=== PATIENT | female | born 1985 | race Caucasian/White ===

== ENCOUNTER 2019-07-05 12:42 | Emergency (ER) | payer SELFPAY ==
[~2019-07-05] VITALS: Ht 157 cm; Wt 101.9 kg
[~2019-07-05 12:42] MED LIST: FLUO20CA25; HYDR1TAB PO; LEVOTHYROXINE; TOPI50TA20
[2019-07-05 13:21] VITALS: BP 145/92
[2019-07-05 13:21] LABS: BASOPHILS % (AUTO) 0 % (0-10); EOSINOPHILS # (AUTO) 0.1 10^3/uL (0.0-0.3); EOSINOPHILS % (AUTO) 1 % (0-10); HEMATOCRIT 40 % (35-52); HEMOGLOBIN 13.5 G/DL (11.5-16.0); LYMPHOCYTES # (AUTO) 1.9 X 10^3 (1.0-4.0); LYMPHOCYTES % (AUTO) 23 % (12-44); MEAN CORPUSCULAR HEMOGLOBIN 29 PG (25-34); MEAN CORPUSCULAR HGB CONC 34 G/DL (32-36); MEAN CORPUSCULAR VOLUME 87 FL (80-99); MEAN PLATELET VOLUME 10.1 FL (7.4-10.4); MONOCYTES # (AUTO) 0.5 X 10^3 (0.0-1.0); MONOCYTES % (AUTO) 6 % (0-12); NEUTROPHILS # (AUTO) 5.7 X 10^3 (1.8-7.8); NEUTROPHILS % (AUTO) 70 % (42-75); PLATELET COUNT 315 10^3/uL (130-400); RED CELL DISTRIBUTION WIDTH 13.3 % (10.0-14.5); WHITE BLOOD COUNT 8.2 10^3/uL (4.3-11.0)
[2019-07-05 13:46] LABS: ALANINE AMINOTRANSFERASE 24 U/L (0-55); ALBUMIN 4.8 GM/DL (3.2-4.5); ALKALINE PHOSPHATASE 74 U/L (40-136); BILIRUBIN,TOTAL 0.6 MG/DL (0.1-1.0); BUN/CREATININE RATIO 11; CALCIUM 9.6 MG/DL (8.5-10.1); CARBON DIOXIDE 23 MMOL/L (21-32); CHLORIDE 104 MMOL/L (98-107); CREATININE SERUM 0.83 MG/DL (0.60-1.30); GFR ESTIMATED > 60; GLUCOSE 95 MG/DL (70-105); POTASSIUM 3.7 MMOL/L (3.6-5.0); SODIUM 141 MMOL/L (135-145); TOTAL PROTEIN 7.8 GM/DL (6.4-8.2)
--- NOTE | 2019-07-05 13:48 | ED GU-Female ---
General Chief Complaint: SILVER WRAPPER Stated Complaint: VAG BLEEDING/APPROX 4-5 WKS PREG Nursing Triage Note: TO TRIAGE ET STATES SHE IS APPX 4 WEEKS GESTATION. HAS HAD HEAVY BLEEDING SINCE SATURDAY WITH CRAMPING. STATES TODAY THE BLEEDING HAS SLOWED DOWN. Nursing Sepsis Screen: No Definite Risk History of Present Illness Date Seen by Provider: Jul 05, 2019 Time Seen by Provider: 13:30 Initial Comments 34-year-old female presents after having vaginal bleeding since 07/03/19, it has decreased today, was heavier than a menstrual cycle for the last 2 days. Her LMP was 05/31/19, she is taking vitamins, 3 faint + home urine HCG. Had not seen her SILVER WRAPPER in last 4 weeks, last PAP/Pelvic within 12 months, no abnormalities. O+ blood typ. No abdominal pain, fever, chills or myalgias. Timing/Duration: yesterday Severity/Quality: mild Location: suprapubic Radiation: none Sexual [place] History: single partner Associated Symptoms: denies symptoms Allergies and Home Medications Allergies Coded Allergies: Tetanus (Unverified Allergy, Mild, 07/26/09) No Known Drug Allergies (Verified Allergy, Unknown, 12/02/07) Patient Home Medication List Home Medication List Reviewed: Yes Review of Systems Review of Systems Constitutional: no symptoms reported, see HPI Genitourinary: see HPI, discharge (vaginal bleeding) LMP: May 31, 2019 All Other Systemes Reviewed Negative Unless Noted: Yes Past Iydcevy-Xprbfo-Cplkiv Hx Past Med/Social Hx: Reviewed and Corrections made Patient Social History Alcohol Use: Denies Use Recreational Drug Use: No Smoking Status: Never a Smoker Recent Foreign Travel: No Contact w/Someone Who Travel: No Recent Infectious Disease Expo: No Past Medical History Surgeries: Yes (KIDNEY STONES) Gallbladder Hypertension : No Last Menstrual Period: May 31, 2019 Hx : 3 Hx Para: 2 Hx Total # of Abortions (Sp): 1 Reproductive Disorders: No Genitourinary: No Gastrointestinal: No Musculoskeletal: No Endocrine: No HEENT: No Cancer: No Psychosocial: No Physical Exam Vital Signs Vital Signs - First Documented 07/05/19 12:50 Temp 36.8 Pulse 60 Resp 16 B/P (MAP) 190/130 (150) Pulse Ox 99 O2 Delivery Room Air Capillary Refill : Less Than 3 Seconds Height, Weight, BMI Height: '" Weight: lbs. oz. kg; 41.00 BMI Method: General Appearance: WD/WN, mild distress (emotional, tearful) Cardiovascular: normal peripheral pulses, regular rate, rhythm Respiratory: chest non-tender, lungs clear, normal breath sounds Gastrointestinal: normal bowel sounds, non tender, soft; No distended, No rebound, No tenderness Back: normal inspection, no CVA tenderness Extremities: normal range of motion, non-tender Neurologic/Psychiatric: no motor/sensory deficits, alert, normal mood/affect, oriented x 3 Skin: normal color Progress/Results/Core Measures Suspected Sepsis Recent Fever Within 48 Hours: No Infection Criteria Present: None New/Unexplained Altered Menta: No Sepsis Screen: No Definite Risk SIRS Temperature: Pulse: 60 Respiratory Rate: 16 Laboratory Tests 07/05/19 13:04: White Blood Count 8.2 Blood Pressure 145 /92 Mean: 109 Laboratory Tests 07/05/19 13:04: Creatinine 0.83, Platelet Count 315, Total Bilirubin 0.6 Results/Orders Lab Results Laboratory Tests Test 07/05/19 13:04 Range/Units White Blood Count 8.2 4.3-11.0 10^3/uL Red Blood Count 4.61 4.35-5.85 10^6/uL Hemoglobin 13.5 11.5-16.0 G/DL Hematocrit 40 35-52 % Mean Corpuscular Volume 87 80-99 FL Mean Corpuscular Hemoglobin 29 25-34 PG Mean Corpuscular Hemoglobin Concent 34 32-36 G/DL Red Cell Distribution Width 13.3 10.0-14.5 % Platelet Count 315 130-400 10^3/uL Mean Platelet Volume 10.1 7.4-10.4 FL Neutrophils (%) (Auto) 70 42-75 % Lymphocytes (%) (Auto) 23 12-44 % Monocytes (%) (Auto) 6 0-12 % Eosinophils (%) (Auto) 1 0-10 % Basophils (%) (Auto) 0 0-10 % Neutrophils # (Auto) 5.7 1.8-7.8 X 10^3 Lymphocytes # (Auto) 1.9 1.0-4.0 X 10^3 Monocytes # (Auto) 0.5 0.0-1.0 X 10^3 Eosinophils # (Auto) 0.1 0.0-0.3 10^3/uL Basophils # (Auto) 0.0 0.0-0.1 10^3/uL Sodium Level 141 135-145 MMOL/L Potassium Level 3.7 3.6-5.0 MMOL/L Chloride Level 104 98-107 MMOL/L Carbon Dioxide Level 23 21-32 MMOL/L Anion Gap 14 5-14 MMOL/L Blood Urea Nitrogen 9 7-18 MG/DL Creatinine 0.83 0.60-1.30 MG/DL Estimat Glomerular Filtration Rate > 60 BUN/Creatinine Ratio 11 Glucose Level 95 70-105 MG/DL Calcium Level 9.6 8.5-10.1 MG/DL Corrected Calcium 8.5-10.1 MG/DL Total Bilirubin 0.6 0.1-1.0 MG/DL Aspartate Amino Transf (AST/SGOT) 22 5-34 U/L Alanine Aminotransferase (ALT/SGPT) 24 0-55 U/L Alkaline Phosphatase 74 40-136 U/L Total Protein 7.8 6.4-8.2 GM/DL Albumin 4.8 H 3.2-4.5 GM/DL Human Chorionic Gonadotropin, Quant < 5 <5 MIU/ML My Orders Orders - ALIREZA NICHOLE Urine Bedside (07/05/19 12:56) Cbc With Automated Diff (07/05/19 12:56) Comprehensive Metabolic Panel (07/05/19 12:56) Hcg,Quantitative (07/05/19 12:56) Vital Signs/I&O 07/05/19 07/05/19 07/05/19 12:50 13:21 13:52 Temp 36.8 36.8 Pulse 60 60 Resp 16 16 B/P (MAP) 190/130 (150) 145/92 (109) 145/92 (109) Pulse Ox 99 99 O2 Delivery Room Air Capillary Refill : Less Than 3 Seconds Blood Pressure Mean: 109 POS Progress Note : Time: 13:30 Progress Note Patient seen and evaluated, blood type O+, discussed spontaneous miscarriage. Patient offered grief counseling with regional sales leader, declined. present and supportive. Charge instructions and return precautions reviewed. All questions answered. Departure Impression Primary Impression: Miscarriage Disposition: 01 HOME, SELF-CARE Condition: Improved Departure-Patient Inst. Decision time for Depature: 13:45 Referrals: NO,LOCAL PHYSICIAN (PCP/Family) Primary Care Physician Patient Instructions: Miscarriage (DC), Dealing With Miscarriage Add. Discharge Instructions: Rest and fluids, activity as tolerated. Take 16 ounces of fluid every 2 hours while awake Continue taking your vitamins. Schedule follow up with Dr. Phillip. Use pads only for vaginal bleeding. Vaginal rest: nothing in vagina (intercourse, tampons, douching, etc). You may terminate between Tylenol 650 mg and ibuprofen 600 mg every 4 hours for pain or cramping. Return to the emergency department for acute abdominal pain, increased bleeding, fever greater than 101 or new, urgent health care concerns. All discharge instructions reviewed with patient and/or family. Voiced understanding. Work/School Note: School/Childcare Release Date Seen in the Emergency Department: Jul 05, 2019 Time Dismissed from Emergency Department: 14:00 Return to School: Jul 07, 2019 Restrictions: No Restrictions ALIREZA NICHOLE Jul 05, 2019 13:48 POS
[2019-07-05 13:52] VITALS: BP 145/92
== END 2019-07-05 13:52 | disposition home or self-care (01) ==
LOC: EDUNIT# 12:42 → ER 12:45
DX: O03.9 Complete or unspecified spontaneous abortion without complication (principal); I10 Essential (primary) hypertension; Z87.442 Personal history of urinary calculi; Z88.7 Allergy status to serum and vaccine
CPT/HCPCS: 36415; 80053; 84702; 84703; 85025